=== PATIENT | male | born 1940 | race Caucasian/White ===

== ENCOUNTER 2017-01-05 13:23 | Inpatient (IN) | payer MEDICARE ==
[~2017-01-05 13:23] MED LIST: ACIPHEX20 MG; ALEVE220 M4 PO; ANDROGEL75 G1 TD; ASPIR 8181 M1 PO; ASPIR 8181 MG PO; ASPIRIN325 MG; ATENOLOL25 M1 PO; ATENOLOL25 MG; ATENOLOL25 MG PO; COLACE100 M1 PO; CYCLOBENZAPRINE5 M1 PO; FIBERCON625 M2 PO; FISH OIL 1,2001 EAC4 PO; FLOMAX0.4 MG; IRON325 M3 PO; LEVAQUIN500 MG; LEVAQUIN500 MG PO; LEVAQUIN750 MG; LEVSIN0.125 MG; LIPITOR20 MG; LIPITOR20 MG PO; LISINOPRIL10 MG PO; MACRODANTIN100 M1 PO; MUCINEX600 M1 PO; MULTIVITAMINS1 EAC6 PO; NAPROXEN SODIU220 M3 PO; NORCO 5-325 TA1 EACH PO; NORVASC2.5 MG; NORVASC5 M2 PO; PROSTAVAN; PROTONIX40 M2 PO; SENOKOT-S TABL1 EACH PO; TENORMIN25 MG; TYLENOL325 M2 PO; ULTRAM50 M1 PO; ZESTRIL20 MG PO; ZESTRIL40 M2 PO; ZOCOR20 M1 PO
[2017-01-05] MEDS ORDERED: ASPIRIN EC81 MG PO (13:41)
[2017-01-05] MEDS ORDERED: FISH OIL 1,2001 EAC4 PO (13:42)
[2017-01-05] MEDS ORDERED: COLACE100 M1 PO (13:43)
[2017-01-05 14:19] LABS: BASO % 0.3 % (0-2); EOS % 0.3 % (0-7); HCT-HEMATOCRIT 49.5 % (36.0-53.5); IMMATURE GRANULOCYTES ABSOLUTE 0.02 tho/cmm (0-0.03); IMMATURE GRANULOCYTES PERCENT 0.3 % (0-0.3); LYMPH % 9.9 % (20-45); LYMPH ABSOLUTE COUNT 0.7 tho/cmm (0.8-4.5); MCH (MEAN CORPUSCULAR HGB) 27.9 pg (28.0-32.0); MCHC MEAN CORPUSCULAR HGB CONC 32.3 % (32.0-36.0); MCV (MEAN CELL VOLUME) 86.4 fl (82.0-96.0); MEAN PLATELET VOLUME 10.2 cmc (9.4-12.4); MONO % 10.5 % (0-12); MONOCYTE ABSOLUTE COUNT 0.7 tho/cmm (0.0-1.2); NEUTROPHIL ABSOLUTE COUNT 5.2 tho/cmm (1.6-8.0); NEUTROPHIL-AUTOMATED 5.2 tho/cmm (1.6-8.0); NEUTROPHILS % 78.7 % (40-80); PLATELET COUNT 195 tho/cmm (150-450); RED BLOOD COUNT 5.73 mil/cmm (4.40-5.70); RED CELL DISTRIBUTION WIDTH 14.9 % (12.4-16.4); WHITE BLOOD COUNT 6.6 tho/cmm (4.0-10.0)
[2017-01-05 14:33] LABS: ANION GAP 14 mmol/L (0-20); BLOOD UREA NITROGEN 25 mg/dl (6-24); C-REACTIVE PROTEIN 11.8 mg/dl (0-0.9); CALCIUM 8.4 mg/dl (8.5-10.5); CARBON DIOXIDE-VENOUS 22 mmol/L (22-32); CHLORIDE 112 mmol/l (96-110); CREATININE 1.11 mg/dl (0.60-1.30); GLUCOSE 123 mg/dL (70-110); POTASSIUM 3.9 mmol/L (3.7-5.1); SODIUM 144 mmol/L (135-145); eGFR VALUE FOR BLACK 73 mL/Min
[2017-01-05 14:37] LABS: ESR-ERYTHROCYTE SED RATE 3 mm/hr (0-20)
[2017-01-06 04:42] LABS: BASO % 0.8 % (0-2); BASO ABSOLUTE COUNT 0.1 tho/cmm (0.0-0.2); EOS % 1.2 % (0-7); EOSINOPHIL ABSOLUTE COUNT 0.1 tho/cmm (0.0-0.7); HCT-HEMATOCRIT 47.7 % (36.0-53.5); HGB-HEMOGLOBIN 15.4 gm/dl (13.5-17.0); IMMATURE GRANULOCYTES ABSOLUTE 0.02 tho/cmm (0-0.03); IMMATURE GRANULOCYTES PERCENT 0.3 % (0-0.3); LYMPH % 18.7 % (20-45); LYMPH ABSOLUTE COUNT 1.1 tho/cmm (0.8-4.5); MCH (MEAN CORPUSCULAR HGB) 27.8 pg (28.0-32.0); MCHC MEAN CORPUSCULAR HGB CONC 32.3 % (32.0-36.0); MCV (MEAN CELL VOLUME) 86.3 fl (82.0-96.0); MEAN PLATELET VOLUME 10.3 cmc (9.4-12.4); MONO % 18.2 % (0-12); MONOCYTE ABSOLUTE COUNT 1.1 tho/cmm (0.0-1.2); NEUTROPHIL ABSOLUTE COUNT 3.7 tho/cmm (1.6-8.0); NEUTROPHIL-AUTOMATED 3.7 tho/cmm (1.6-8.0); NEUTROPHILS % 60.8 % (40-80); PLATELET COUNT 214 tho/cmm (150-450); RED BLOOD COUNT 5.53 mil/cmm (4.40-5.70); RED CELL DISTRIBUTION WIDTH 15.1 % (12.4-16.4)
[2017-01-06 04:55] LABS: ANION GAP 15 mmol/L (0-20); BLOOD UREA NITROGEN 21 mg/dl (6-24); CALCIUM 8.5 mg/dl (8.5-10.5); CARBON DIOXIDE-VENOUS 21 mmol/L (22-32); CHLORIDE 113 mmol/l (96-110); CREATININE 0.87 mg/dl (0.60-1.30); GLUCOSE 100 mg/dL (70-110); MAGNESIUM 2.1 mg/dl (1.8-2.6); POTASSIUM 4.1 mmol/L (3.7-5.1); SODIUM 145 mmol/L (135-145); eGFR VALUE FOR BLACK >90 mL/Min
[2017-01-06 09:24] LABS: ALB/GLOB RATIO 0.7 (0.8-2.0); ALBUMIN 3.2 g/dl (3.5-5.0); ALKALINE PHOSPHATASE 99 U/L (33-138); ALT/SGPT 28 U/L (12-78); BILIRUBIN,TOTAL 0.5 mg/dl (0.0-1.5)
[2017-01-06 09:27] LABS: AST/SGOT 30 U/L (10-40); BILIRUBIN,DIRECT <0.1 mg/dl (0.0-0.3)
[2017-01-07 03:29] LABS: BASO % 0.3 % (0-2); EOS % 1.2 % (0-7); EOSINOPHIL ABSOLUTE COUNT 0.1 tho/cmm (0.0-0.7); HCT-HEMATOCRIT 47.4 % (36.0-53.5); HGB-HEMOGLOBIN 15.5 gm/dl (13.5-17.0); IMMATURE GRANULOCYTES ABSOLUTE 0.02 tho/cmm (0-0.03); IMMATURE GRANULOCYTES PERCENT 0.3 % (0-0.3); LYMPH % 23.6 % (20-45); LYMPH ABSOLUTE COUNT 1.4 tho/cmm (0.8-4.5); MCH (MEAN CORPUSCULAR HGB) 27.9 pg (28.0-32.0); MCHC MEAN CORPUSCULAR HGB CONC 32.7 % (32.0-36.0); MCV (MEAN CELL VOLUME) 85.3 fl (82.0-96.0); MONO % 19.3 % (0-12); MONOCYTE ABSOLUTE COUNT 1.1 tho/cmm (0.0-1.2); NEUTROPHIL ABSOLUTE COUNT 3.2 tho/cmm (1.6-8.0); NEUTROPHIL-AUTOMATED 3.2 tho/cmm (1.6-8.0); NEUTROPHILS % 55.3 % (40-80); PLATELET COUNT 213 tho/cmm (150-450); RED BLOOD COUNT 5.56 mil/cmm (4.40-5.70); RED CELL DISTRIBUTION WIDTH 14.8 % (12.4-16.4); WHITE BLOOD COUNT 5.8 tho/cmm (4.0-10.0)
[2017-01-07 03:30] LABS: PROTHROMBIN TIME 11.9 SECONDS (9.0-13.6)
[2017-01-07 03:41] LABS: ANION GAP 13 mmol/L (0-20); BLOOD UREA NITROGEN 16 mg/dl (6-24); CALCIUM 8.8 mg/dl (8.5-10.5); CARBON DIOXIDE-VENOUS 23 mmol/L (22-32); CHLORIDE 113 mmol/l (96-110); CHOLESTEROL 117 mg/dl (120-200); CREATININE 0.89 mg/dl (0.60-1.30); GLUCOSE 99 mg/dL (70-110); HDL CHOLESTEROL 28 mg/dl (40-60); LDL CHOLESTEROL 59 mg/dl (0-99); MAGNESIUM 2.2 mg/dl (1.8-2.6); POTASSIUM 4.1 mmol/L (3.7-5.1); SODIUM 145 mmol/L (135-145); VLDL 30 mg/dl (0-30); eGFR VALUE FOR BLACK >90 mL/Min
[2017-01-07 03:42] LABS: TRIGLYCERIDES 151 mg/dl (<149)
[2017-01-09 05:29] LABS: BLOOD UREA NITROGEN 17 mg/dl (6-24); CREATININE 0.88 mg/dl (0.60-1.30); eGFR VALUE FOR BLACK >90 mL/Min
[2017-01-10 06:09] LABS: ANION GAP 11 mmol/L (0-20); BLOOD UREA NITROGEN 19 mg/dl (6-24); C-REACTIVE PROTEIN 0.5 mg/dl (0-0.9); CALCIUM 8.6 mg/dl (8.5-10.5); CARBON DIOXIDE-VENOUS 25 mmol/L (22-32); CHLORIDE 107 mmol/l (96-110); CREATININE 0.87 mg/dl (0.60-1.30); GLUCOSE 98 mg/dL (70-110); PHOSPHOROUS 2.9 mg/dl (2.5-4.9); SODIUM 139 mmol/L (135-145); eGFR VALUE FOR BLACK >90 mL/Min
[2017-01-10 06:11] LABS: BASO % 0.7 % (0-2); BASO ABSOLUTE COUNT 0.1 tho/cmm (0.0-0.2); EOS % 2.1 % (0-7); EOSINOPHIL ABSOLUTE COUNT 0.2 tho/cmm (0.0-0.7); HCT-HEMATOCRIT 48.3 % (36.0-53.5); HGB-HEMOGLOBIN 15.6 gm/dl (13.5-17.0); IMMATURE GRANULOCYTES ABSOLUTE 0.03 tho/cmm (0-0.03); IMMATURE GRANULOCYTES PERCENT 0.4 % (0-0.3); LYMPH % 16.9 % (20-45); LYMPH ABSOLUTE COUNT 1.2 tho/cmm (0.8-4.5); MCH (MEAN CORPUSCULAR HGB) 27.4 pg (28.0-32.0); MCHC MEAN CORPUSCULAR HGB CONC 32.3 % (32.0-36.0); MCV (MEAN CELL VOLUME) 84.7 fl (82.0-96.0); MEAN PLATELET VOLUME 10.2 cmc (9.4-12.4); MONO % 14.7 % (0-12); MONOCYTE ABSOLUTE COUNT 1.1 tho/cmm (0.0-1.2); NEUTROPHIL ABSOLUTE COUNT 4.7 tho/cmm (1.6-8.0); NEUTROPHIL-AUTOMATED 4.7 tho/cmm (1.6-8.0); NEUTROPHILS % 65.2 % (40-80); PLATELET COUNT 218 tho/cmm (150-450); RED CELL DISTRIBUTION WIDTH 14.2 % (12.4-16.4); WHITE BLOOD COUNT 7.2 tho/cmm (4.0-10.0)
[2017-01-10] MEDS ORDERED: AMIODARONE HCL200 M1 PO (11:14)
[2017-01-10] MEDS ORDERED: BACTRIM DS TAB1 EAC2 PO (11:16)
[2017-01-10] MEDS ORDERED: COREG6.25 M1 PO (14:42)
[2017-01-22] MEDS ORDERED: TYLENOL EXTRA500 M1 PO (11:22)
[2017-01-22] MEDS ORDERED: LIPITOR20 M1 PO (11:22)
[2017-01-22] MEDS ORDERED: EXCEDRIN EXTRA1 EAC4 PO (11:22)
[2017-01-22] MEDS ORDERED: NAPROXEN250 M1 PO (11:23)
[2017-01-22] MEDS ORDERED: ANDROGEL75 G1 TOP (11:26)
[2017-01-22] MEDS ORDERED: MULTIPLE VITAM1 EAC4 PO (11:28)
[2017-01-23] MEDS ORDERED: AMIODARONE HCL200 M1 PO (17:54)
== END 2017-01-10 15:15 | DRG 505 ==
LOC: EDMED 13:23 → EMR2 16:50 → 5WE 17:07 → PCUB 01-06 10:00 → ORW 01-07 15:50 → PCUB 01-07 17:00
PROVIDERS: Emergency Medicine; Internal Medicine Cardiovascular Disease; Internal Medicine Infectious Disease; ADMIT Hospitalist
PROC: 05HC33Z Insertion of Infusion Device into Left Basilic Vein, Percutaneous Approach (ICD-10-PCS; 2017-01-06)
PROC: 0Y6V0Z3 Detachment at Right 4th Toe, Low, Open Approach (ICD-10-PCS; principal; 2017-01-07)
PROC: 4A023N7 Measurement of Cardiac Sampling and Pressure, Left Heart, Percutaneous Approach (ICD-10-PCS; 2017-01-08)
PROC: B2111ZZ Fluoroscopy of Multiple Coronary Arteries using Low Osmolar Contrast (ICD-10-PCS; 2017-01-08)
DX: M86.171 Other acute osteomyelitis, right ankle and foot (principal); I10 Essential (primary) hypertension; I25.10 Atherosclerotic heart disease of native coronary artery without angina pectoris; E78.5 Hyperlipidemia, unspecified; L03.031 Cellulitis of right toe
CPT/HCPCS: C1751; C1769; C1887; C1894; C8929; J0282; J0360; J0696; J1200; J1644; J2250; J2720; J3010; J3370; J7030; Q9967